=== PATIENT | female | born 1960 | race Caucasian/White ===

== ENCOUNTER → 2017-08-29 | Outpatient (CLI) | payer BC ==
--- NOTE | 2017-08-29 14:04 | BD ---
EXAMINATION TYPE: Axial Bone Density DATE OF EXAM: 08/29/2017 COMPARISON: NONE CLINICAL HISTORY: 57 YR OLD FEMALE.....ICD-10 CODE: Z78.0 ASYMPTOMATIC Height: 63.2 Weight: 173 FRAX RISK QUESTIONS: NOTHING SPECIFIC TO NOTE RISK FACTORS HISTORY OF: HX OF A FALL POSSIBLE LUMBAR FXS AT AGE 50 YRS OLD, UNSURE WHICH WERE AFFECTED Family History of Osteoporosis: YES, HER GRANDMOTHER, NO FX Active: FAIRLY Diet low in dairy products/other sources of calcium: YES Postmenopausal woman: YES, AT 55 YRS OLD MEDICATIONS: Additional Medications: MIGRAINE MEDS NEEDED, VIT D AND VIT B Additional History: MIGRAINES EXAM MEASUREMENTS: Bone mineral densitometry was performed using the OmProm[employer] System. Bone mineral density as measured about the Lumbar spine is: ----- L1-L4(G/cm2): 1.453 T Score Values are as follows: ----- L1: 1.7 ----- L2: 2.5 ----- L3: 2.4 ----- L4: 2.4 ----- L1-L4: 2.3 Bone mineral density FIRST BONE DENSITY AT [facility].... Bone mineral density about the R hip (g/cm2): 1.206 Bone mineral density about the L hip (g/cm2): 1.151 T Score values are as follows: -----R Neck: 1.2 -----L Neck: 0.6 -----R Total: 1.6 -----L Total: 1.1 Bone mineral density FIRST STUDY AT [facility].....BASELINE FRAX%s: THERE IS A 4.8% CHANCE OF A MAJOR OSTEOPOROTIC FX AND A 0.1% FOR HIP FX.....PROBABILITY OF FX IN 10 YRS TIME IMPRESSION: Normal (Values between +1 and -1 indicate normal bone mass). Consider repeating this study in 5 year s or sooner if there is some new clinical indication. NOTE: T-SCORE=SD OF THE YOUNG ADULT MEAN.
--- NOTE | 2017-09-02 08:11 | MM ---
Reason for exam: screening (asymptomatic). Last mammogram was performed 4 years and 9 months ago. History: Patient is postmenopausal. Benign excisional biopsy of both breasts, 1996. Physical Findings: A clinical breast exam by your physician is recommended on an annual basis and results should be correlated with mammographic findings. MG 3D Screening Mammo W/Cad Bilateral CC and MLO view(s) were taken. Prior study comparison: December 11, 2012, mammogram, performed at [facility]. The breast tissue is heterogeneously dense. This may lower the sensitivity of mammography. No significant changes when compared with prior studies. ASSESSMENT: Negative, BI-RAD 1 RECOMMENDATION: Routine screening mammogram of both breasts in 1 year.
== END | disposition home or self-care (01) ==
LOC: RADMAMWWP 09:41
PROVIDERS: ATTEND Family Medicine
DX: Z12.31 Encounter for screening mammogram for malignant neoplasm of breast (principal); Z78.0 Asymptomatic menopausal state
CPT/HCPCS: 77063; 77067; 77080

== ENCOUNTER → 2018-02-26 | Outpatient (CLI) | payer BC ==
--- NOTE | 2018-02-26 14:15 | XR ---
EXAMINATION TYPE: XR chest 2V DATE OF EXAM: 02/26/2018 COMPARISON: NONE HISTORY: Cough TECHNIQUE: Frontal and lateral views of the chest are obtained. FINDINGS: There is no focal air space opacity, pleural effusion, or pneumothorax seen. The cardiac silhouette size is within normal limits. The osseous structures are intact. IMPRESSION: No acute cardiopulmonary process.
== END ==
LOC: RADXRMAIN 13:49
PROVIDERS: ATTEND Family Medicine
DX: R05 Cough (principal)
CPT/HCPCS: 71046

== ENCOUNTER → 2018-12-08 | Outpatient (CLI) | payer BC ==
--- NOTE | 2018-12-08 15:50 | US ---
EXAMINATION TYPE: US kidneys/renal and bladder DATE OF EXAM: 12/08/2018 COMPARISON: NONE CLINICAL HISTORY: N39.0 UTI. Hematuria, UTI EXAM MEASUREMENTS: Right Kidney: 10.2 x 4.0 x 4.2 cm Left Kidney: 9.6 x 5.4 x 5.1 cm Right Kidney: No hydronephrosis or masses seen Left Kidney: Medial anechoic lesion at hilum = 2.3 x 2.5 cm, possible extrarenal pelvis. Bladder: Moderately distended, anechoic Bilateral Jets not seen There is no evidence for hydronephrosis at this point in time. No nephrolithiasis is seen. The urina ry bladder is anechoic. Bilateral ureteral jets are seen. IMPRESSION: Possible left extrarenal pelvis versus left renal sinus cyst. Urinary bladder appears anechoic. No hy dronephrosis of either kidney.
--- NOTE | 2018-12-08 15:53 | US ---
EXAMINATION TYPE: US pelvis complete transvag DATE OF EXAM: 12/08/2018 COMPARISON: NONE CLINICAL HISTORY: R10.2 PELVIC PAIN. Pelvic pressure. Patient states having hx of fibroids. TECHNIQUE: Transvaginal (TV) and Transabdominal (TA) . Transabdominal sonographic images of the pel vis were acquired. 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 Uterus: Anteverted Limited visualization. Myometrium not well seen. Multiple focal lesions se en. Largest seen pedunculated from fundal region = 4.6 x 4.8 x 4.6m cm. Multiple echogenic lesions with shadow= 2.8 x 2.5 cm. ILA/Cervical region vascular hypoechoic lesion - 1.9 x 1.9 x 1.4 cm 2. Endometrium: Not visualized due to focal uterine lesions 3. Right Ovary: Obscured by overlying bowel gas 4. Left Ovary: Obscured by overlying bowel gas 5. Bilateral Adnexa: wnl 6. Posterior cul-de-sac: no free fluid IMPRESSION: 1. The exam is markedly limited due to shadowing by probable uterine leiomyomas, some of which appear calcified. The myometrium is not clearly defined and endometrium is not visualized. One of the large st lesions is pedunculated from the fundus of the uterus measuring up to 4.8 cm and within the lower uterine segment/cervix there is a mass that could represent a leiomyoma or complicated nabothian cyst measuring up to 1.9 cm. Comparison with any prior outside ultrasound or MRI could further assess the se pelvic findings. 2. Obscuration of the ovaries by bowel gas and likely nonvisualized also secondary to atrophy.
== END | disposition home or self-care (01) ==
LOC: RADUSWWP 14:36
PROVIDERS: ATTEND Family Medicine
DX: N39.0 Urinary tract infection, site not specified (principal); N85.9 Noninflammatory disorder of uterus, unspecified; R10.2 Pelvic and perineal pain
CPT/HCPCS: 76770; 76830; 76856

== ENCOUNTER → 2020-05-24 | Outpatient (CLI) | payer BC ==
--- NOTE | 2020-05-24 14:24 | US ---
EXAMINATION TYPE: US kidneys/renal and bladder DATE OF EXAM: 05/24/2020 COMPARISON: NONE CLINICAL HISTORY: N39.0 Urinary tract infection. EXAM MEASUREMENTS: Right Kidney: 10.3 x 4.0 x 4.2 cm Left Kidney: 10.4 x 5.9 x 4.9 cm Right Kidney: No hydronephrosis or masses seen Left Kidney: Possible extrarenal pelvis Bladder: wnl There is no evidence for hydronephrosis at this point in time. No nephrolithiasis is seen. No joseph s are identified. The urinary bladder is anechoic. Bilateral ureteral jets are seen. IMPRESSION: No significant abnormality.
== END | disposition home or self-care (01) ==
LOC: RADUSWWP 13:33
PROVIDERS: ATTEND Family Medicine
DX: N39.0 Urinary tract infection, site not specified (principal)
CPT/HCPCS: 76770

== ENCOUNTER → 2020-06-21 | Outpatient (CLI) | payer BC ==
--- NOTE | 2020-06-22 13:09 | MM ---
Reason for exam: screening (asymptomatic). Last mammogram was performed 2 years and 10 months ago. History: Patient is postmenopausal. Benign excisional biopsy of both breasts, 1996. Physical Findings: A clinical breast exam by your physician is recommended on an annual basis and results should be correlated with mammographic findings. MG 3D Screening Mammo W/Cad Bilateral CC and MLO view(s) were taken. Prior study comparison: August 29, 2017, bilateral MG 3d screening mammo w/cad. December 11, 2012, mammogram, performed at [facility]. The breast tissue is heterogeneously dense. This may lower the sensitivity of mammography. There are benign appearing round calcifications bilaterally. There is no discrete abnormality. ASSESSMENT: Benign, BI-RAD 2 RECOMMENDATION: Routine screening mammogram of both breasts in 1 year.
== END | disposition home or self-care (01) ==
LOC: RADMAMWWP 16:03
PROVIDERS: ATTEND Family Medicine
DX: Z12.31 Encounter for screening mammogram for malignant neoplasm of breast (principal); Z78.0 Asymptomatic menopausal state
CPT/HCPCS: 77063; 77067

== ENCOUNTER 2021-01-31 15:36 | Emergency (ER) | payer BC ==
[2021-01-31] MEDS ORDERED: SODIUM CHLORIDE 0.9% 1,000 ML IV ONE ×2 (16:10→17:22)
[2021-01-31] MEDS ORDERED: ACETAMINOPHEN TAB 500 MG TAB PO STA (16:10)
--- NOTE | 2021-01-31 16:15 | ED ---
SOB HPI - General Chief Complaint: Shortness of Breath Stated Complaint: pneumonia, high heart rate, sent by PCP Time Seen by Provider: 01/31/21 15:50 Source: patient Mode of arrival: ambulatory Limitations: no limitations - History of Present Illness Initial Comments: 60-year-old previously healthy female presents emergency Department with reported cough, congestion and shortness of breath. States that her symptoms started the day after Thanks[place]. She saw her primary care doctor on the and was placed on prednisone, Zithromax. She began to feel somewhat better and as of 3 days ago but began feeling worse again. Her tested positive for Covid on Friday. States that she has been tested twice and each time has been negative. She reports palpitations, headache and productive cough. Admits low-grade fevers. Is not taking anything for fever control at home yet today. She called Dr. Cobian's office recommended that she come into the emergency department for PE evaluation. Patient denies calf pain or swelling. No history of DVT or PE. Denies any chest pain patient is not vaccinated. Admits nausea without vomiting. No other alleviating, precipitating or modifying factors - Related Data Home Medications Medication Instructions Recorded Confirmed Ascorbic Acid [Vitamin C] 1,000 mg PO DAILY 01/31/21 01/31/21 Zinc 50 mg PO DAILY 01/31/21 01/31/21 Allergies Allergy/AdvReac Type Severity Reaction Status Date / Time No Known Allergies Allergy Verified 01/31/21 16:42 Review of Systems ROS Statement: Those systems with pertinent positive or pertinent negative responses have been documented in the HPI. ROS Other: All systems not noted in ROS Statement are negative. Past Medical History Past Medical History: No Reported History History of Any Multi-Drug Resistant Organisms: None Reported Past Surgical History: Breast Surgery, Tonsillectomy Additional Past Surgical History / Comment(s): cysts removed from breats. Past Psychological History: No Psychological Hx Reported Smoking Status: Never smoker Past Alcohol Use History: Rare Past Drug Use History: None Reported General Exam Limitations: no limitations General appearance: alert, in no apparent distress Head exam: Present: atraumatic, normocephalic, normal inspection Eye exam: Present: normal appearance, PERRL, EOMI. Absent: scleral icterus, conjunctival injection, periorbital swelling ENT exam: Present: normal exam, mucous membranes moist Neck exam: Present: normal inspection. Absent: tenderness, meningismus, lymphadenopathy Respiratory exam: Present: normal lung sounds bilaterally. Absent: respiratory distress, wheezes, rales, rhonchi, stridor Cardiovascular Exam: Present: regular rate, normal rhythm, normal heart sounds. Absent: systolic murmur, diastolic murmur, rubs, gallop, clicks GI/Abdominal exam: Present: soft, normal bowel sounds. Absent: distended, tenderness, guarding, rebound, rigid Extremities exam: Present: normal inspection, full ROM, normal capillary refill. Absent: tenderness, pedal edema, joint swelling, calf tenderness Back exam: Present: normal inspection Neurological exam: Present: alert, oriented X3, CN II-XII intact Psychiatric exam: Present: normal affect, normal mood Skin exam: Present: warm, dry, intact, normal color. Absent: rash Course Vital Signs 01/31/21 01/31/21 01/31/21 15:51 16:51 17:58 Temperature 101.5 F H Pulse Rate 97 Respiratory 19 18 18 Rate Blood Pressure 128/83 O2 Sat by Pulse 98 Oximetry 01/31/21 01/31/21 01/31/21 19:23 20:00 21:00 Temperature 98.7 F 98.3 F 98.4 F Pulse Rate 68 70 64 Respiratory 18 16 16 Rate Blood Pressure 102/67 94/67 86/62 O2 Sat by Pulse 97 96 98 Oximetry Medical Decision Making - Medical Decision Making Upon arrival patient is placed into room 2. Thorough history and physical exam is performed. Laboratory studies are conducted. D-dimer 0.31. patient is a low risk candidate. Creatinine mildly elevated at 1.33. Patient given 2 L bolus of normal saline. Patient is swab for Covid which is positive. Chest x-ray clear. Patient will be given antibody infusion and discharged home. She is above the primary care doctor to 4 days. Patient agreed to the plan and was discharged home in stable condition - Lab Data Result diagrams: 01/31/21 16:10 01/31/21 16:10 Lab Results 01/31/21 01/31/21 01/31/21 Range/Units 16:10 16:10 16:10 WBC 6.3 (3.8-10.6) k/uL RBC 4.56 (3.80-5.40) m/uL Hgb 13.6 (11.4-16.0) gm/dL Hct 41.5 (34.0-46.0) % MCV 90.9 (80.0-100.0) fL MCH 29.9 (25.0-35.0) pg MCHC 32.9 (31.0-37.0) g/dL RDW 13.7 (11.5-15.5) % Plt Count 278 (150-450) k/uL MPV 7.2 Neutrophils % 62 % Lymphocytes % 18 % Monocytes % 15 % Eosinophils % 1 % Basophils % 1 % Neutrophils # 4.0 (1.3-7.7) k/uL Lymphocytes # 1.2 (1.0-4.8) k/uL Monocytes # 0.9 (0-1.0) k/uL Eosinophils # 0.1 (0-0.7) k/uL Basophils # 0.1 (0-0.2) k/uL PT 10.0 (9.0-12.0) sec INR 0.9 (<1.2) APTT 24.6 (22.0-30.0) sec D-Dimer 0.31 (<0.60) mg/L FEU Sodium 136 L (137-145) mmol/L Potassium 4.3 (3.5-5.1) mmol/L Chloride 100 (98-107) mmol/L Carbon Dioxide 25 (22-30) mmol/L Anion Gap 11 mmol/L BUN 17 (7-17) mg/dL Creatinine 1.33 H (0.52-1.04) mg/dL Est GFR (CKD-EPI)AfAm 50 (>60 ml/min/1.73 sqM) Est GFR (CKD-EPI)NonAf 44 (>60 ml/min/1.73 sqM) Glucose 98 (74-99) mg/dL Plasma Lactic Acid Loco (0.7-2.0) mmol/L Calcium 8.9 (8.4-10.2) mg/dL Magnesium 2.1 (1.6-2.3) mg/dL Total Bilirubin 0.3 (0.2-1.3) mg/dL AST 20 (14-36) U/L ALT 16 (4-34) U/L Alkaline Phosphatase 101 (38-126) U/L Troponin I (0.000-0.034) ng/mL Total Protein 7.1 (6.3-8.2) g/dL Albumin 4.3 (3.5-5.0) g/dL Procalcitonin (0.02-0.09) ng/mL Coronavirus (PCR) (Not Detectd) 01/31/21 01/31/21 01/31/21 Range/Units 16:10 16:10 16:10 WBC (3.8-10.6) k/uL RBC (3.80-5.40) m/uL Hgb (11.4-16.0) gm/dL Hct (34.0-46.0) % MCV (80.0-100.0) fL MCH (25.0-35.0) pg MCHC (31.0-37.0) g/dL RDW (11.5-15.5) % Plt Count (150-450) k/uL MPV Neutrophils % % Lymphocytes % % Monocytes % % Eosinophils % % Basophils % % Neutrophils # (1.3-7.7) k/uL Lymphocytes # (1.0-4.8) k/uL Monocytes # (0-1.0) k/uL Eosinophils # (0-0.7) k/uL Basophils # (0-0.2) k/uL PT (9.0-12.0) sec INR (<1.2) APTT (22.0-30.0) sec D-Dimer (<0.60) mg/L FEU Sodium (137-145) mmol/L Potassium (3.5-5.1) mmol/L Chloride (98-107) mmol/L Carbon Dioxide (22-30) mmol/L Anion Gap mmol/L BUN (7-17) mg/dL Creatinine (0.52-1.04) mg/dL Est GFR (CKD-EPI)AfAm (>60 ml/min/1.73 sqM) Est GFR (CKD-EPI)NonAf (>60 ml/min/1.73 sqM) Glucose (74-99) mg/dL Plasma Lactic Acid Loco 0.7 (0.7-2.0) mmol/L Calcium (8.4-10.2) mg/dL Magnesium (1.6-2.3) mg/dL Total Bilirubin (0.2-1.3) mg/dL AST (14-36) U/L ALT (4-34) U/L Alkaline Phosphatase (38-126) U/L Troponin I <0.012 (0.000-0.034) ng/mL Total Protein (6.3-8.2) g/dL Albumin (3.5-5.0) g/dL Procalcitonin (0.02-0.09) ng/mL Coronavirus (PCR) Detected A (Not Detectd) 01/31/21 Range/Units 16:10 WBC (3.8-10.6) k/uL RBC (3.80-5.40) m/uL Hgb (11.4-16.0) gm/dL Hct (34.0-46.0) % MCV (80.0-100.0) fL MCH (25.0-35.0) pg MCHC (31.0-37.0) g/dL RDW (11.5-15.5) % Plt Count (150-450) k/uL MPV Neutrophils % % Lymphocytes % % Monocytes % % Eosinophils % % Basophils % % Neutrophils # (1.3-7.7) k/uL Lymphocytes # (1.0-4.8) k/uL Monocytes # (0-1.0) k/uL Eosinophils # (0-0.7) k/uL Basophils # (0-0.2) k/uL PT (9.0-12.0) sec INR (<1.2) APTT (22.0-30.0) sec D-Dimer (<0.60) mg/L FEU Sodium (137-145) mmol/L Potassium (3.5-5.1) mmol/L Chloride (98-107) mmol/L Carbon Dioxide (22-30) mmol/L Anion Gap mmol/L BUN (7-17) mg/dL Creatinine (0.52-1.04) mg/dL Est GFR (CKD-EPI)AfAm (>60 ml/min/1.73 sqM) Est GFR (CKD-EPI)NonAf (>60 ml/min/1.73 sqM) Glucose (74-99) mg/dL Plasma Lactic Acid Loco (0.7-2.0) mmol/L Calcium (8.4-10.2) mg/dL Magnesium (1.6-2.3) mg/dL Total Bilirubin (0.2-1.3) mg/dL AST (14-36) U/L ALT (4-34) U/L Alkaline Phosphatase (38-126) U/L Troponin I (0.000-0.034) ng/mL Total Protein (6.3-8.2) g/dL Albumin (3.5-5.0) g/dL Procalcitonin 0.02 (0.02-0.09) ng/mL Coronavirus (PCR) (Not Detectd) - EKG Data EKG Comments: EKG demonstrates sinus rhythm with a rate of 80. ME interval 140. QRS 80. QTC 417. No acute ST segment elevations or depressions changes Disposition Clinical Impression: COVID-19, Pyrexia Disposition: HOME SELF-CARE Condition: Stable Instructions (If sedation given, give patient instructions): Coronavirus Disease 2019 (COVID-19) Additional Instructions: Please follow-up with your primary care doctor in 2-4 days. You received antibody infusion today. Return to the emergency room for any new or worsening symptoms Is patient prescribed a controlled substance at d/c from ED?: No Referrals: Topher Cobian MD [Primary Care Provider] - 1-2 days Time of Disposition: 17:26
[2021-01-31 16:28] LABS: Basophils # (A) 0.1 k/uL (0-0.2); Basophils % (A) 1 %; Eosinophils # (A) 0.1 k/uL (0-0.7); Eosinophils % (A) 1 %; HCT 41.5 % (34.0-46.0); HGB 13.6 gm/dL (11.4-16.0); Lymphocytes # (A) 1.2 k/uL (1.0-4.8); Lymphocytes % (A) 18 %; MCH 29.9 pg (25.0-35.0); MCHC 32.9 g/dL (31.0-37.0); MCV 90.9 fL (80.0-100.0); Mean Platelet Volume 7.2; Monocytes # (A) 0.9 k/uL (0-1.0); Monocytes % (A) 15 %; Neutrophils % (A) 62 %; Platelet Count 278 k/uL (150-450); RBC 4.56 m/uL (3.80-5.40); RDW 13.7 % (11.5-15.5); WBC 6.3 k/uL (3.8-10.6)
[2021-01-31 16:40] LABS: Albumin 4.3 g/dL (3.5-5.0); Calcium 8.9 mg/dL (8.4-10.2); Magnesium 2.1 mg/dL (1.6-2.3); Potassium 4.3 mmol/L (3.5-5.1); Total Bilirubin 0.3 mg/dL (0.2-1.3); Total Protein 7.1 g/dL (6.3-8.2)
--- NOTE | 2021-01-31 16:42 | XR ---
EXAMINATION TYPE: XR chest 1V portable DATE OF EXAM: 01/31/2021 COMPARISON: 02/26/2018 HISTORY: Suspected Covid pneumonia. Shortness of breath. TECHNIQUE: Single frontal view of the chest is obtained. FINDINGS: There is no focal air space opacity, pleural effusion, or pneumothorax seen. The cardiac silhouette size is within normal limits. The osseous structures are intact. 2 suture anchors overly ing the right humeral head seen. IMPRESSION: No acute process.
[2021-01-31 16:54] LABS: INR 0.9 (<1.2); Partial Thromboplastin Time 24.6 sec (22.0-30.0)
[2021-01-31] MEDS ORDERED: SODIUM CHLORIDE 0.9% 50 ML IVPB ONE (18:00)
[2021-01-31] MEDS ORDERED: BAMLANIVIMAB (EUA) 700 MG, ETESEVIMAB (EUA) 1,400 MG in SODIUM CHLORIDE 0.9% 50 ML IVPB ONE (18:00)
[2021-01-31 20:07] VITALS: RESP 16
[2021-01-31 21:01] VITALS: BP 86/62; PULSE 64; TEMP 98.4
== END 2021-01-31 21:05 | disposition home or self-care (01) ==
LOC: EC 15:36
DX: U07.1 COVID-19 (principal)
CPT/HCPCS: 36415; 93005; 85379; 80053; 83605; 83735; 84484; 85025; 85610; 85730; 84145; 87635; 71045; 99285; 96360; J3490

== ENCOUNTER → 2021-10-15 | Outpatient (CLI) | payer BC ==
--- NOTE | 2021-10-15 13:51 | XR ---
EXAMINATION TYPE: XR knee complete RT DATE OF EXAM: 10/15/2021 COMPARISON: NONE HISTORY: Pain TECHNIQUE: Three views are submitted. FINDINGS: Mild hypertrophic change and narrowing of medial compartment knee joint and patellofemoral joint.. O sseous structures are intact. No acute fracture seen. IMPRESSION: 1. Mild osteoarthritis.
--- NOTE | 2021-10-15 13:53 | XR ---
EXAM TYPE: LUMBAR SPINE X RAY SERIES COMPARISON: NONE HISTORY: Pain TECHNIQUE: 4 views are submitted. FINDINGS: Alignment is anatomic. The pedicles are intact. The transverse processes are intact. There is grad e 1 spondylolisthesis of L4 on L5. Severe facet arthropathy L4-5 L5-S1 moderate changes L3-L4. Severe degenerative disc disease L4-5 and L5-S1 with mild changes of the thoracolumbar junction. Calcificat ions in the abdomen are nonspecific. Suggestion of large calcifications in the pelvis. IMPRESSION: 1. Grade 1 anterolisthesis L4 and L5 with severe facet arthropathy suspected foraminal encroachment r ecommend MRI. 2. Severe degenerative disc disease facet arthropathy L5-S1 suspected foraminal encroachment. 3. Large calcifications in the pelvis are nonspecific possibly related to uterine fibroid or retained contrast. Previous ultrasound of 2019 does report a history of previous fibroid uterus. Correlate cl inically.
== END | disposition home or self-care (01) ==
LOC: RADXRMAIN 13:07
PROVIDERS: ATTEND Family Medicine
DX: M54.32 Sciatica, left side (principal); M23.91 Unspecified internal derangement of right knee
CPT/HCPCS: 72110

== ENCOUNTER → 2021-11-07 | Outpatient (CLI) | payer BC ==
--- NOTE | 2021-11-07 21:07 | MR ---
EXAMINATION TYPE: MR lumbar spine wo/w con DATE OF EXAM: 11/07/2021 5:11 PM COMPARISON: Lumbar spine radiograph 10/15/2021. CLINICAL INDICATION:Female, 61 years old with history of M51.36 OTHER INTERVERTEBRAL DISC DEGENERATIO N; low back pain that radiates into hips and legs. TECHNIQUE: Multi planar, multi sequence imaging was performed utilizing: T1-weighted, T2-weighted, a nd turbo inversion recovery imaging of the lumbar spine. IV Contrast: 8.5 cc Gadavist FINDINGS: Alignment: The lumbar vertebral bodies have preserved heights. Grade 1 anterolisthesis borderline gra de 2 of L4 and L5. No acute bony edema identified. Cord: The conus medullaris and the distal spinal cord appear unremarkable with regards to their signa l intensity and morphology. No abnormal postcontrast enhancement. Bones/Discs: Scattered Modic endplate changes and Schmorl's nodes noted. No evidence for bony edema o n inversion recovery imaging. Multilevel degenerative disc disease is noted and most pronounced at th e L1-L2. No abnormal postcontrast enhancement. T11-T12, disc bulge with mild spinal canal narrowing. The neural foramen are patent. T12-L1: no significant disc pathology. No neural canal and spinal canal are patent. L1-L2: Disc extrusion with inferior migration up to 13 mm. This results in mild spinal canal stenosis and moderate to severe left neural foraminal stenosis with disc material in the left neural foramen. (Series 401 image 5% mild right neural foraminal stenosis. L2-L3: Disc bulge with facet joint arthropathy result in no significant spinal canal stenosis and mil d bilateral neural foraminal stenosis L3-L4: Disc bulge with facet joint arthropathy result in mild spinal canal stenosis and mild bilatera l neural foraminal stenosis L4-L5: Grade 1 grade 1 borderline grade 2 anterolisthesis at this level with disc uncovering and face t joint arthropathy resulting in moderate spinal canal stenosis and moderate bilateral neural foramin al stenosis. L5-S1: No significant disc pathology. Spinal canal is patent. The neural foramen are patent. Other findings: Atherosclerosis of the visualized aorta. IMPRESSION: 1. L1-L2 disc herniation with material herniating into the left neural foramen with moderate to sever e left neural foraminal stenosis. Right neural foramen is patent. No abnormal postcontrast enhancemen t. 2. Grade 1 anterolisthesis of L4 and L5 with moderate spinal canal stenosis. The neural foramen are p atent.
== END | disposition home or self-care (01) ==
LOC: RADMRIMAIN 15:32
PROVIDERS: ATTEND Family Medicine
DX: M51.36 Other intervertebral disc degeneration, lumbar region (principal)
CPT/HCPCS: 72158; A9585

== ENCOUNTER → 2021-11-13 | Outpatient (CLI) | payer BC ==
--- NOTE | 2021-11-13 15:48 | US ---
EXAMINATION TYPE: US pelvis complete transvag DATE OF EXAM: 11/13/2021 COMPARISON: US dated 12/08/2018 CLINICAL HISTORY: R19.00 INTRA-ABD AND PELVIC SWELLING, MASS AND LUM. TECHNIQUE: Transvaginal (TV) and Transabdominal (TA) . Date of LMP: postmenopausal, no HRT. EXAM MEASUREMENTS: Uterus: Unable to accurately measure due to extensive calcified fibroids. Endometrial Stripe: Unable to accurately measure due to extensive calcified fibroids Right Ovary: not identified Left Ovary: not identified Patient states history of fibroid embolization in 2014. 1. Uterus: unable to see clearly to measure 2. Endometrium: Unable to accurately measure due to extensive calcified fibroids 3. Right Ovary: not identified 4. Left Ovary: not identified 5. Bilateral Adnexa: wnl 6. Posterior cul-de-sac: no free fluid Uterus is full of calcified fibroids making visualization difficult. IMPRESSION: Multiple calcified uterine leiomyomas
== END | disposition home or self-care (01) ==
LOC: RADUSWWP 14:48
PROVIDERS: ATTEND Family Medicine
DX: R19.00 Intra-abdominal and pelvic swelling, mass and lump, unspecified site (principal)
CPT/HCPCS: 76830; 76856

== ENCOUNTER 2021-12-26 08:32 | Day surgery (SDC) | payer BC ==
[2021-12-24 08:23] VITALS: BMI 32.5
--- NOTE | 2021-12-26 07:35 | P.GSHP ---
History of Present Illness H&P Date: 12/26/21 CHIEF COMPLAINT: Colon screen HISTORY OF PRESENT ILLNESS: The patient is a 61-year-old female who presents for colon screen. Lower endoscopy was offered for further evaluation and management. PAST MEDICAL HISTORY: Please see list. PAST SURGICAL HISTORY: Please see list. MEDICATIONS: Please see list. ALLERGIES: Please see list. SOCIAL HISTORY: No illicit drug use FAMILY HISTORY: No reports of Crohn disease or ulcerative colitis. REVIEW OF ORGAN SYSTEMS: CONSTITUTIONAL: No reports of fevers or chills. PHYSICAL EXAM: VITAL SIGNS: Stable GENERAL: Well-developed pleasant in no acute distress. HEENT: No scleral icterus. Extraocular movements grossly intact. Moist buccal mucosa. NECK: Supple without lymphadenopathy. CHEST: Unlabored respirations. Equal bilateral excursions. CARDIOVASCULAR: Regular rate and rhythm. Distal 2+ pulses. ABDOMEN: Soft, nontender, nondistended. MUSCULOSKELETAL: No clubbing, cyanosis, or edema. ASSESSMENT: 1. Colon screen. PLAN: 1. Recommend proceeding with a lower endoscopy Past Medical History Past Medical History: No Reported History Additional Past Medical History / Comment(s): HX RECTAL BLEEDING History of Any Multi-Drug Resistant Organisms: None Reported Past Surgical History: Breast Surgery, Orthopedic Surgery, Tonsillectomy Additional Past Surgical History / Comment(s): cysts removed from BREAST. UTERINE FIBROID SX. RT SHOULDER SX. COLONOSCOPY. TRIGGER FINGER RT HAND Past Anesthesia/Blood Transfusion Reactions: No Reported Reaction Smoking Status: Never smoker - Past Family History Mother Family Medical History: No Reported History Medications and Allergies Home Medications Medication Instructions Recorded Confirmed Type Diclofenac Sodium 50 mg PO DAILY 12/24/21 12/24/21 History Allergies Allergy/AdvReac Type Severity Reaction Status Date / Time No Known Allergies Allergy Verified 12/24/21 08:15
[~2021-12-26 08:32] MED LIST: LACTATED RINGERS 1,000 ML IV SCH; LIDOCAINE 1% (10MG/ML) FOR IV START INTRADERMA PRN; ONDANSETRON 4 MG/2 ML VIAL IVP PRN
[2021-12-26 09:37] VITALS: RESP 16; TEMP 96.8
[2021-12-26] MEDS ORDERED: PROPOFOL 10 MG/ML 20 ML VIAL IV ONE (09:55)
--- NOTE | 2021-12-26 10:26 | P.PCN ---
Date of Procedure: 12/26/21 Description of Procedure: PREOPERATIVE DIAGNOSIS: Gastrointestinal bleed POSTOPERATIVE DIAGNOSIS: Arteriovenous malformation, rectal Arteriovenous malformation, colon Rectal polyps Internal and external hemorrhoids, grade 3 OPERATION: Colonoscopy to the ileocecal valve and appendiceal orifice, cecum Colonoscopy with ablation of arteriovenous malformation using ERBE Colonoscopy with cold forceps biopsy SURGEON: Sara Gonzales MD. ANESTHESIA: MAC. INDICATIONS: The patient is an 61-year-old female who presents with rectal bleeding. Benefits and risks were described and informed consent was obtained. DESCRIPTION OF PROCEDURE: The patient had undergone Sutab prep. The patient had been brought into the operating room and laid in the left lateral decubitus position. After adequate intravenous sedation, the rectum was examined with 2% lidocaine jelly. External hemorrhoids were encountered. The rectal tone was within normal limits. No lesions were palpated in the rectal vault. An Olympus colonoscope was advanced until the cecum, ileocecal valve and appendiceal orifice were clearly viewed. The prep was excellent. No sigmoid diverticulosis was encountered. Colonic polyps were found and removed. No evidence of focal colitis was found. Arteriovenous malformation 3 were identified involving the sigmoid colon and rectum, ablated. Retroflexion of the scope demonstrated grade 3 internal hemorrhoids without active bleeding or inflammation. The colon was desufflated. The patient had tolerated the procedure well. Withdrawal time was over 6 minutes. FINDINGS: Aronchick preparation quality scale 1 (1-5) Internal hemorrhoids, grade 3 External hemorrhoids, grade 3. Arteriovenous malformations 3 mm, rectum ablated Arteriovenous malformation 2, 3 mm at sigmoid colon, ablated No sigmoid diverticulosis Removal of 2 polyps: - Cold forceps biopsy at 10 cm from the anal verge 2, 4 mm polyp, rectum No focal colitis. RECOMMENDATIONS: Repeat colonoscopy in 2026 Plan - Discharge Summary Discharge Rx Participant: No New Discharge Prescriptions: Continue Diclofenac Sodium 50 mg PO DAILY Discharge Medication List Diclofenac Sodium 50 mg PO DAILY 12/24/21 [History] Follow up Appointment(s)/Referral(s): Sara Gonzales MD [STAFF PHYSICIAN] - 01/15/22 Patient Instructions/Handouts: Rectal Bleeding (GEN), Colorectal Polyps (GEN), Arteriovenous Malformation (DC) Activity/Diet/Wound Care/Special Instructions: Repeat colonoscopy in 5 years2026 Discharge Disposition: HOME SELF-CARE
[2021-12-26 10:42] VITALS: BP 132/74; PULSE 58
== END 2021-12-26 11:14 | disposition home or self-care (01) ==
LOC: ORWHC2ENDO 08:32
PROVIDERS: ATTEND Surgery Plastic and Reconstructive Surgery
DX: K63.5 Polyp of colon (principal); Q27.30 Arteriovenous malformation, site unspecified; K64.2 Third degree hemorrhoids; Z98.890 Other specified postprocedural states; Z90.89 Acquired absence of other organs; Z98.82 Breast implant status; Z79.899 Other long term (current) drug therapy
CPT/HCPCS: 45388; 88305; 45380; J2704; 45382

== ENCOUNTER 2022-02-04 07:48 | Day surgery (SDC) | payer BC ==
--- NOTE | 2022-02-04 07:20 | P.GSHP ---
History of Present Illness H&P Date: 02/04/22 CHIEF COMPLAINT: GERD HISTORY OF PRESENT ILLNESS: The patient is a 61-year-old female who presents reports gastroesophageal reflux disease. Upper endoscopy was offered for further evaluation and management. PAST MEDICAL HISTORY: Please see list. PAST SURGICAL HISTORY: Please see list. MEDICATIONS: Please see list. ALLERGIES: Please see list. SOCIAL HISTORY: No illicit drug use FAMILY HISTORY: No reports of Crohn disease or ulcerative colitis. REVIEW OF ORGAN SYSTEMS: CONSTITUTIONAL: No reports of fevers or chills. GI: Denies any blood in stools or constipation. PHYSICAL EXAM: VITAL SIGNS: Stable GENERAL: Well-developed and pleasant in no acute distress. HEENT: No scleral icterus. Extraocular movements grossly intact. Moist buccal mucosa. NECK: Supple without lymphadenopathy. CHEST: Unlabored respirations. Equal bilateral excursions. CARDIOVASCULAR: Regular rate and rhythm. Distal 2+ pulses. ABDOMEN: Soft, nondistended. MUSCULOSKELETAL: No clubbing, cyanosis, or edema. ASSESSMENT: 1. Gastroesophageal reflux disease PLAN: 1. Recommend proceeding with an upper endoscopy Past Medical History Past Medical History: No Reported History, Osteoarthritis (OA) Additional Past Medical History / Comment(s): HX RECTAL BLEEDING migraines, back and leg pain 3 ruptured vertabrae History of Any Multi-Drug Resistant Organisms: None Reported Past Surgical History: Breast Surgery, Orthopedic Surgery, Tonsillectomy Additional Past Surgical History / Comment(s): cysts removed from BREAST. UTERINE FIBROID SX. RT SHOULDER SX. COLONOSCOPY. TRIGGER FINGER RT HAND Past Anesthesia/Blood Transfusion Reactions: No Reported Reaction Smoking Status: Never smoker - Past Family History Mother Family Medical History: No Reported History Medications and Allergies Home Medications Medication Instructions Recorded Confirmed Type Diclofenac Sodium 50 mg PO DAILY PRN 12/24/21 01/30/22 History Aspirin/Acetaminophen/Caffeine 1 tab PO DAILY PRN 01/30/22 01/30/22 History [Excedrin Migraine Caplet] Allergies Allergy/AdvReac Type Severity Reaction Status Date / Time No Known Allergies Allergy Verified 01/30/22 15:10
[~2022-02-04 07:48] MED LIST changes: -ONDANSETRON 4 MG/2 ML VIAL IVP PRN
[2022-02-04 08:25] VITALS: TEMP 96.8
[2022-02-04] MEDS ORDERED: PROPOFOL 10 MG/ML 20 ML VIAL IV ONE ×2 (08:42→09:37)
--- NOTE | 2022-02-04 08:56 | P.PCN ---
Date of Procedure: 02/04/22 Description of Procedure: PREOPERATIVE DIAGNOSIS: GI bleed Gastroesophageal reflux disease. POSTOPERATIVE DIAGNOSIS: Gastroesophageal reflux disease. Gastritis. Diaphragmatic hiatal hernia Presbyesophagus OPERATION: Esophagogastroduodenoscopy SURGEON: Sara Gonzales MD ANESTHESIA: MAC. INDICATIONS: The patient is a 61-year-old female who presents with GI bleed. s of the procedure were described. Informed consent was obtained. DESCRIPTION: The patient was brought into the endoscopy suite and laid in the left lateral decubitus position. An Olympus gastroscope was passed along the posterior oropharynx down to the distal esophagus where the squamocolumnar junction was encountered at 35 cm from the incisors. The stomach was entered and no bile reflux was found. Additional findings are listed below. The first through third portion of the duodenum was examined. Retroflexion of the scope confirmed Hill grade 3 lower esophageal valve. The squamocolumnar junction demonstrated LA grade B erosive esophagitis. The stomach was desufflated. The patient tolerated the procedure well. FINDINGS: Squamocolumnar junction 35 cm from the incisors. Diaphragmatic hiatus at 35 cm. Hiatal hernia, 2 cm Hill grade 2 lower esophageal valve. No arteriovenous malformation LA grade B erosive esophagitis. No active duodenitis. Chronic gastritis RECOMMENDATIONS: Upper endoscopy as needed. Plan - Discharge Summary Discharge Rx Participant: No New Discharge Prescriptions: Continue Aspirin/Acetaminophen/Caffeine [Excedrin Migraine Caplet] 1 tab PO DAILY PRN PRN Reason: Migraine Headache Diclofenac Sodium 50 mg PO DAILY PRN PRN Reason: Migraine Headache Acetaminophen Tab [Tylenol] 1,000 mg PO Q6HR Discharge Medication List Diclofenac Sodium 50 mg PO DAILY PRN 12/24/21 [History] Aspirin/Acetaminophen/Caffeine [Excedrin Migraine Caplet] 1 tab PO DAILY PRN 01/30/22 [History] Acetaminophen Tab [Tylenol] 1,000 mg PO Q6HR 02/04/22 [History] Follow up Appointment(s)/Referral(s): Sara Gonzales MD [STAFF PHYSICIAN] - As Needed Patient Instructions/Handouts: Gastritis (DC) Discharge Disposition: HOME SELF-CARE
[2022-02-04 09:13] VITALS: BP 133/61; PULSE 89; RESP 16
[2022-02-04] MEDS ORDERED: LIDOCAINE 2% INJ 20 MG/ML (2 ML VIAL) ONE (09:37)
== END 2022-02-04 09:40 | disposition home or self-care (01) ==
LOC: ORWHC2ENDO 07:48
PROVIDERS: ATTEND Surgery Plastic and Reconstructive Surgery
DX: K29.50 Unspecified chronic gastritis without bleeding (principal); K22.89 Other specified disease of esophagus; K21.9 Gastro-esophageal reflux disease without esophagitis; K44.9 Diaphragmatic hernia without obstruction or gangrene
CPT/HCPCS: 43235; J2704; 43239

== ENCOUNTER 2023-01-16 10:27 | Day surgery (SDC) | payer BC ==
[2023-01-14 10:32] VITALS: BMI 28.6
[~2023-01-16 10:27] MED LIST changes: -LIDOCAINE 1% (10MG/ML) FOR IV START INTRADERMA PRN
[2023-01-16] MEDS ORDERED: LACTATED RINGERS 1,000 ML IV ONE (10:54)
[2023-01-16 11:06] LABS: Glucose,Whole Blood 80 mg/dL (70-110)
--- NOTE | 2023-01-16 11:08 | P.GSHP ---
History of Present Illness H&P Date: 01/16/23 CHIEF COMPLAINT: GI bleed HISTORY OF PRESENT ILLNESS: The patient is a 62-year-old female who presents for GI. Lower endoscopy was offered for further evaluation and management. PAST MEDICAL HISTORY: Please see list. PAST SURGICAL HISTORY: Please see list. MEDICATIONS: Please see list. ALLERGIES: Please see list. SOCIAL HISTORY: No illicit drug use FAMILY HISTORY: No reports of Crohn disease or ulcerative colitis. REVIEW OF ORGAN SYSTEMS: CONSTITUTIONAL: No reports of fevers or chills. PHYSICAL EXAM: VITAL SIGNS: Stable GENERAL: Well-developed pleasant in no acute distress. HEENT: No scleral icterus. Extraocular movements grossly intact. Moist buccal mucosa. NECK: Supple without lymphadenopathy. CHEST: Unlabored respirations. Equal bilateral excursions. CARDIOVASCULAR: Regular rate and rhythm. Distal 2+ pulses. ABDOMEN: Soft, nontender, nondistended. MUSCULOSKELETAL: No clubbing, cyanosis, or edema. ASSESSMENT: 1. GI bleed PLAN: 1. Recommend proceeding with a lower endoscopy Past Medical History Past Medical History: Osteoarthritis (OA) Additional Past Medical History / Comment(s): HX RECTAL BLEEDING, migraines, back and leg pain 3 ruptured vertabrae History of Any Multi-Drug Resistant Organisms: None Reported Past Surgical History: Breast Surgery, Orthopedic Surgery, Tonsillectomy Additional Past Surgical History / Comment(s): cysts removed from BREAST. UTERINE FIBROID SX. RT SHOULDER SX. COLONOSCOPY. TRIGGER FINGER RT HAND Past Anesthesia/Blood Transfusion Reactions: No Reported Reaction Smoking Status: Never smoker - Past Family History Mother Family Medical History: No Reported History Medications and Allergies Home Medications Medication Instructions Recorded Confirmed Type Semaglutide [Wegovy] 1.7 mg SQ SA 01/14/23 01/14/23 History Allergies Allergy/AdvReac Type Severity Reaction Status Date / Time No Known Allergies Allergy Verified 01/14/23 10:11
[2023-01-16 11:09] VITALS: TEMP 98
[2023-01-16] MEDS ORDERED: PROPOFOL 10 MG/ML 20 ML VIAL IV ONE (11:32)
--- NOTE | 2023-01-16 12:09 | P.PCN ---
Date of Procedure: 01/16/23 Description of Procedure: PREOPERATIVE DIAGNOSIS: Gastrointestinal bleed POSTOPERATIVE DIAGNOSIS: Arteriovenous malformation, rectal Arteriovenous malformation, colon Internal and external hemorrhoids, grade 3 Sigmoid diverticulosis OPERATION: Colonoscopy to the ileocecal valve and appendiceal orifice, cecum Colonoscopy with ablation of arteriovenous malformation using ERBE SURGEON: Sara Gonzales MD. ANESTHESIA: MAC. INDICATIONS: The patient is an 62-year-old female who presents with rectal bleeding. Benefits and risks were described and informed consent was obtained. DESCRIPTION OF PROCEDURE: The patient had undergone Sutab prep. The patient had been brought into the operating room and laid in the left lateral decubitus position. After adequate intravenous sedation, the rectum was examined with 2% lidocaine jelly. External hemorrhoids were encountered. The rectal tone was within normal limits. No lesions were palpated in the rectal vault. An Olympus colonoscope was advanced until the cecum, ileocecal valve and appendiceal orifice were clearly viewed. The prep was excellent. No sigmoid diverticulosis was encountered. Colonic polyps were found and removed. No evidence of focal colitis was found. Arteriovenous malformation 5 were identified involving the sigmoid colon and rectum, ablated. Retroflexion of the scope demonstrated grade 3 internal hemorrhoids without active bleeding or inflammation. The colon was desufflated. The patient had tolerated the procedure well. Withdrawal time was over 6 minutes. FINDINGS: Aronchick preparation quality scale 2 (1-5) Internal hemorrhoids, grade 3 External hemorrhoids, grade 3. Arteriovenous malformations 3 mm x 3, rectum ablated Arteriovenous malformation 2, 3 mm at sigmoid colon, ablated Sigmoid diverticulosis Removal of 2 polyps: - Cold forceps biopsy at 10 cm from the anal verge 2, 4 mm polyp, rectum No focal colitis. RECOMMENDATIONS: May need repeat colonoscopy with ablation for arteriovenous malformation May benefit from hemorrhoidectomy Increase fiber 25 g daily Plan - Discharge Summary Discharge Rx Participant: No New Discharge Prescriptions: Continue Semaglutide [Wegovy] 1.7 mg SQ SA Discharge Medication List Semaglutide [Wegovy] 1.7 mg SQ SA 01/14/23 [History] Follow up Appointment(s)/Referral(s): Sara Gonzales MD [STAFF PHYSICIAN] - 02/11/23 11:30 am Patient Instructions/Handouts: Gastrointestinal Bleeding (IP), Hemorrhoids (DC), Rectal Bleeding (DC) Discharge Disposition: HOME SELF-CARE
[2023-01-16 12:17] VITALS: RESP 16
[2023-01-16 12:40] VITALS: BP 116/78; PULSE 83
== END 2023-01-16 13:07 | disposition home or self-care (01) ==
LOC: ORWHC2ENDO 10:27
PROVIDERS: ATTEND Surgery Plastic and Reconstructive Surgery
DX: K64.2 Third degree hemorrhoids (principal); K57.31 Diverticulosis of large intestine without perforation or abscess with bleeding; Q27.39 Arteriovenous malformation, other site; K64.4 Residual hemorrhoidal skin tags; M19.90 Unspecified osteoarthritis, unspecified site; G43.909 Migraine, unspecified, not intractable, without status migrainosus; Z79.899 Other long term (current) drug therapy; Z98.890 Other specified postprocedural states
CPT/HCPCS: 45388; J2704

== ENCOUNTER → 2024-07-05 | Outpatient (CLI) | payer BC ==
--- NOTE | 2024-07-05 14:46 | US ---
EXAMINATION TYPE: US thyroid st tissue head/neck DATE OF EXAM: 07/05/2024 COMPARISON: NONE CLINICAL INDICATION: Female, 64 years old with history of E04.1 NONTOXIC SINGLE THYROID NODULE; Pt fe els lump in throat when swallowing on and off TECHNIQUE: Grayscale and color Doppler imaging of the thyroid gland. FINDINGS: GLAND SIZE: Right Lobe: 4.6 x 1.6 x 1.5 cm Overall Parenchyma: homogeneous Left Lobe: 3.5 x 1.7 x 1.3 cm Overall Parenchyma: homogeneous Isthmus Thickness: 0.25 cm NODULES RIGHT: # of nodules measured on right: 0 LEFT: # of nodules measured on left: 0 ISTHMUS: # of nodules measured in the isthmus: 0 Bilateral neck scanned, no evidence of lymphadenopathy. IMPRESSION: No specific sonographic abnormality of the thyroid gland. [facility], Workstation: [email or web address], 07/05/2024 2:43 PM
== END | disposition home or self-care (01) ==
LOC: RADUSWWP 14:02
PROVIDERS: ATTEND Family Medicine
DX: E04.1 Nontoxic single thyroid nodule (principal)
CPT/HCPCS: 76536